=== PATIENT | male | born 1975 | race Caucasian/White ===

== ENCOUNTER 2018-03-16 20:12 | Emergency (ER) | payer SELFPAY ==
[2018-03-16 21:00] VITALS: BP 150/66; PULSE 90; RESP 16; TEMP 98.1; O2SAT 100
--- NOTE | 2018-03-16 21:41 | ED PDOC ---
Lower Extremity Pain/Injury Time Seen by Provider: 03/16/18 21:02 Chief Complaint (Nursing): Lower Extremity Problem/Injury Chief Complaint (Provider): right leg pain History Per: Patient History/Exam Limitations: no limitations Onset/Duration Of Symptoms: Days (x2) Current Symptoms Are (Timing): Still Present Additional Complaint(s): Billy Albert, a 43 year old male with past medical history of diabetes, presents to the emergency department with right calf pain, swelling and bruising onset 2 days. Patient states he was working out (training for boxing) and while jumping side to side, he had an sudden onset of pain to affected area that worsens with walking and bearing weight. He states he has not taking medication and denies fever, chills, prolonged immobility, shortness of breath, chest pain, palpitations, abdominal pain, nausea, vomiting, diarrhea or radiation of pain. Patient reports smoking 4-5 cigarettes per day PMD: none Past Medical History Reviewed: Historical Data, Nursing Documentation, Vital Signs Vital Signs: Last Vital Signs Temp 98.1 F 03/16/18 20:57 Pulse 90 03/16/18 20:57 Resp 16 03/16/18 20:57 BP 150/66 03/16/18 20:57 Pulse Ox 100 03/16/18 20:57 - Medical History PMH: Bronchitis, Diabetes, Fractures, Gastritis - Surgical History Surgical History: No Surg Hx - Family History Family History: States: Unknown Family Hx - Social History Current smoker - smoking cessation education provided: Yes (4-5 cigarettes per day) Alcohol: Other (daily) Drugs: Denies - Home Medications Home Medications: Ambulatory Orders Medication Instructions Recorded Acetaminophen [Acetaminophen 8 650 mg PO Q8 PRN #21 tablet.er 03/16/18 Hour] Naproxen 500 mg PO BID PRN #20 tab 03/16/18 traMADol [Ultram] 50 mg PO Q6 PRN #12 tab 03/16/18 - Allergies Allergies/Adverse Reactions: Allergies Allergy/AdvReac Type Severity Reaction Status Date / Time No Known Allergies Allergy Verified 03/16/18 20:55 Review of Systems ROS Statement: Except As Marked, All Systems Reviewed And Found Negative Constitutional: Negative for: Fever, Chills Cardiovascular: Negative for: Chest Pain, Palpitations Respiratory: Negative for: Shortness of Breath Gastrointestinal: Negative for: Nausea, Vomiting, Abdominal Pain, Diarrhea Musculoskeletal: Positive for: Leg Pain (calf pain, swelling and bruising). Negative for: Other (radiation of pain) Physical Exam - Reviewed Nursing Documentation Reviewed: Yes Vital Signs Reviewed: Yes - Physical Exam Comments: GENERAL APPEARANCE: Patient is awake, alert, oriented x 3, in no acute distress. Ambulatory with a limp in ED. SKIN: Warm, dry; (-) cyanosis. LEG: (+) Diffuse tenderness to right calf, (+) diffuse swelling and ecchymosis right calf, (-) palpable cord (-) warmth (-) erythema. (-) distal neurovascular deficit. (+) pulses. Full ROM ankle and knee. Sensation intact throughout. NEURO AND PSYCH: Mental status as above. Speech clear. (-) facial asymmetry (-) aphasia CHEST AND RESPIRATORY: (-) wheezing; (-) rales, (-) rhonchi, (-) rub; breath sounds equal bilaterally. Respirations even and nonlabored. HEART AND CARDIOVASCULAR: (-) irregularity - Laboratory Results Result Diagrams: 03/16/18 21:55 03/16/18 21:55 - ECG O2 Sat by Pulse Oximetry: 100 (RA) Pulse Ox Interpretation: Normal Medical Decision Making Medical Decision Making: Time: 21:00 Impression: acute calf pain, probable gastrocnemius injury Initial Plan: --CMP --CBC w/ differential --Partial thromboplastin time --Prothrombin time --Toradol 30 mg IVP --Glucose, blood poc --US duplex lower extremity -Accucheck: 121 2220 Patient in U/S. 2235 Labs reviewed. Slight elevation of LFTs. Patient made aware and admits he is a daily drinker but otherwise labs grossly unremarkable. Coag profile WNL. Pending U/S report. 2335 U/S reviewed, radiology report follows EXAM: US Duplex Right Lower Extremity Veins CLINICAL HISTORY: 43 years old, male; Pain; Leg, lower; Right; Additional info: Swelling, R/O dvt vs muscle rupture TECHNIQUE: Real-time duplex ultrasound scan of the right lower extremity veins integrating B-mode twodimensional vascular structure, Doppler spectral analysis, color flow Doppler imaging and compression. COMPARISON: No relevant prior studies available. FINDINGS: Deep veins: Normal color and spectral Doppler flow. Normal compressibility. No deep vein thrombosis. Superficial veins: No thrombosis. Soft tissues: Poorly defined heterogeneity within RIGHT calf. IMPRESSION: 1. No evidence of DVT within RIGHT lower extremity. 2. Poorly defined heterogeneity within RIGHT calf. DDX: Hematoma/muscle tear, phlegmon/early abscess, neoplasm. Clinical correlation is needed. Thank you for allowing us to participate in the care of your patient. Dictated and Authenticated by: Gil Wolff MD 03/16/2018 11:16 PM Eastern Time ([place] & [place]) Patient placed in posterior short leg splint by ED staff. NV intact after placement. Patient advised to keep splint clean, dry, and intact. Patient supplied with crutches and educated on crutch walking. On re-evaluation, patient reports improvement of symptoms. On exam, patient remains AAOx3, in no acute distress. On exam, neck is supple, lungs CTA, cardiac RRR, neuro exam shows no focal findings. VSS, stable for discharge. Diagnostic results d/w the patient in great detail. Dx of acute calf pain, likely gastrocnemius tear/rupture d/w the patient. Based on history, exam and diagnostic results plan will be for discharge and outpatient follow up with PMD/ortho. Strict return precautions given. Advised to follow up with primary care physician / ortho in 1-2 days without fail. Advised to take medication as prescribed. Return to the emergency room at any time for any new or worsening symptoms. Patient states he fully agrees with and understands discharge instructions. States that he agrees with the plan and disposition. Verbalized and repeated discharge instructions and plan. I have given the patient opportunity to ask any additional questions. Scribe Attestation: Documented by Madelyn Rhodes, acting as a scribe for Sade Fonseca PA-C. Provider Scribe Attestation: All medical record entries made by the Scribe were at my direction and personally dictated by me. I have reviewed the chart and agree that the record accurately reflects my personal performance of the history, physical exam, medical decision making, and the department course for this patient. I have also personally directed, reviewed, and agree with the discharge instructions and disposition. Disposition - Clinical Impression Clinical Impression: Right calf pain, Gastrocnemius muscle tear - Patient ED Disposition Is Patient to be Admitted: No Counseled Patient/Family Regarding: Studies Performed, Diagnosis, Need For Followup, Rx Given - Disposition Referrals: Behzad Hernández III, MD [Staff Provider] - [facility] [Outside] Disposition: Routine/Home Disposition Time: 23:54 Condition: STABLE Additional Instructions: The emergency medical care you received today was directed at your acute symptoms. If you were prescribed any medication, please fill it and take as directed. It may take several days for your symptoms to resolve. Return to the Emergency Department if your symptoms worsen, do not improve, or if you have any other problems. Please contact your doctor in 2 days for re-evaluation and follow up / or call one of the physicians/clinics you have been referred to that are listed on the Patient Visit Information form that is included in your discharge packet. Bring any paperwork you were given at discharge with you along with any medications you are taking to your follow up visit. Our treatment cannot replace ongoing medical care by a primary care provider (PCP) outside of the emergency department. Prescriptions: Acetaminophen [Acetaminophen 8 Hour] 650 mg PO Q8 PRN #21 tablet.er PRN Reason: Pain, Moderate (4-7) Naproxen 500 mg PO BID PRN #20 tab PRN Reason: Pain, Moderate (4-7) traMADol [Ultram] 50 mg PO Q6 PRN #12 tab PRN Reason: Pain, Severe (8-10) Instructions: Muscle and Bone Pain (DC), Lower Extremity Muscle Strain (DC) Forms: [employer] (Luxembourgish) Print Language: SLOVAK - POA Present On Arrival: None Results - Lab Results Lab Results: 03/16/18 03/16/18 03/16/18 21:55 21:55 21:55 WBC 4.7 L RBC 3.97 L Hgb 13.6 Hct 40.0 MCV 100.6 H MCH 34.3 H MCHC 34.0 RDW 13.8 Plt Count 72 L MPV 8.8 Neut % (Auto) 57.4 Lymph % (Auto) 23.1 Lane % (Auto) 15.5 H Eos % (Auto) 2.0 Baso % (Auto) 2.0 Neut # (Auto) 2.7 Lymph # (Auto) 1.1 Lane # (Auto) 0.7 Eos # (Auto) 0.1 Baso # (Auto) 0.1 PT 11.7 INR 1.1 APTT 35.1 Sodium 143 Potassium 4.1 Chloride 103 Carbon Dioxide 30 Anion Gap 14 BUN 7 L Creatinine 0.7 L Est GFR ( Amer) > 60 Est GFR (Non-Af Amer) > 60 POC Glucose (mg/dL) Random Glucose 131 H Calcium 8.9 Total Bilirubin 0.4 AST 110 H ALT 71 Alkaline Phosphatase 140 H Total Protein 7.5 Albumin 4.2 Globulin 3.2 Albumin/Globulin Ratio 1.3 03/16/18 21:38 WBC RBC Hgb Hct MCV MCH MCHC RDW Plt Count MPV Neut % (Auto) Lymph % (Auto) Lane % (Auto) Eos % (Auto) Baso % (Auto) Neut # (Auto) Lymph # (Auto) Lane # (Auto) Eos # (Auto) Baso # (Auto) PT INR APTT Sodium Potassium Chloride Carbon Dioxide Anion Gap BUN Creatinine Est GFR ( Amer) Est GFR (Non-Af Amer) POC Glucose (mg/dL) 121 H Random Glucose Calcium Total Bilirubin AST ALT Alkaline Phosphatase Total Protein Albumin Globulin Albumin/Globulin Ratio
[2018-03-16 22:11] LABS: BASO # 0.1 K/uL (0.0-0.2); EOS # 0.1 K/uL (0.0-0.7); HEMOGLOBIN 13.6 g/dL (12.0-18.0); LYMPH # 1.1 K/uL (1.0-4.3); LYMPH % 23.1 % (20.0-40.0); MEAN CELL VOLUME 100.6 fl (80.0-94.0); MEAN CORPUSCULAR HEMOGLOBIN 34.3 pg (27.0-31.0); MEAN PLATELET VOLUME 8.8 fl (7.2-11.7); MONO # 0.7 K/uL (0.0-0.8); MONO % 15.5 % (0.0-10.0); NEUT # 2.7 K/uL (1.8-7.0); NEUT % 57.4 % (50.0-75.0); NRBC % 0.2 % (0.0-0.0); RBC 3.97 Mil/uL (4.40-5.90); RED CELL DISTRIBUTION WIDTH 13.8 % (11.5-14.5); WHITE BLOOD COUNT 4.7 K/uL (4.8-10.8)
[2018-03-16 22:15] LABS: ALB/GLOB RATIO 1.3 (1.0-2.1); ALBUMIN 4.2 g/dL (3.5-5.0); ALT/SGPT 71 U/L (21-72); AST/SGOT 110 U/L (17-59); BLOOD UREA NITROGEN 7 mg/dl (9-20); CALCIUM 8.9 mg/dL (8.4-10.2); GFR NON-AFRICAN AMERICAN > 60
[2018-03-16 22:17] LABS: INR 1.1; PROTHROMBIN TIME 11.7 Seconds (9.8-13.1)
[2018-03-16 22:20] LABS: PARTIAL THROMBOPLASTIN TIME 35.1 Seconds (25.6-37.1)
--- NOTE | 2018-03-17 12:32 | US ---
Date of service: 03/16/2018 PROCEDURE: Right lower extremity venous duplex Doppler. HISTORY: swelling, r/o DVT vs muscle rupture COMPARISON: None available. TECHNIQUE: Common femoral, superficial femoral, popliteal and posterior tibial veins were evaluated. Flow was assessed with color Doppler, compressibility, assessment of phasic flow and augmentation response. FINDINGS: COMMON FEMORAL VEIN: Unremarkable. SUPERFICIAL FEMORAL VEIN: Unremarkable. POPLITEAL VEIN: Unremarkable. POSTERIOR TIBIAL VEIN: Unremarkable. OTHER FINDINGS: Ill-defined mass right calf 8, corresponding findings on physical examination. There are both solid and cystic components. If there is a history of trauma gastrocnemius muscle rupture without adjacent hematoma should be considered. IMPRESSION: No evidence of deep venous thrombosis in the right lower extremity. Soft tissue mass right calf hematoma/ gastrocnemius injury Follow-up to resolution advised. Concordant results (preliminary interpretation) provided by [facility]. Procedure Completed: 22:20 Preliminary ([facility]) Report: Dictated and Authenticated: 23:16 Final Interpretation: 12:30 March 17, 2018.
== END 2018-03-17 00:16 | disposition home or self-care (01) ==
LOC: H.ER 20:12
DX: M79.661 Pain in right lower leg (principal); S86.811A Strain of other muscle(s) and tendon(s) at lower leg level, right leg, initial encounter; X50.3XXA Overexertion from repetitive movements, initial encounter; Y93.71 Activity, boxing; E11.9 Type 2 diabetes mellitus without complications; F17.210 Nicotine dependence, cigarettes, uncomplicated
CPT/HCPCS: 80053; 82948; 85025; 85610; 85730; 93971; 96374; 99285; J1885

== ENCOUNTER 2018-08-12 09:50 | Emergency (ER) | payer SELFPAY ==
--- NOTE | 2018-08-12 11:10 | ED PDOC ---
HPI: General Adult Time Seen by Provider: 08/12/18 11:06 Chief Complaint (Nursing): Lower Extremity Problem/Injury Chief Complaint (Provider): left ankle pain History Per: Patient (43 y/o male here with left ankle injury that occurred when he struck leg against table 1 week ago. Notes persistent pain by ankle. Has h/o diagnosis of Diabetes by [facility] but never follow up.) Past Medical History Reviewed: Historical Data, Nursing Documentation, Vital Signs Vital Signs: Last Vital Signs Temp 97.5 F L 08/12/18 10:16 Pulse 82 08/12/18 10:16 Resp 19 08/12/18 10:16 BP 157/85 H 08/12/18 10:16 Pulse Ox 96 08/12/18 10:16 - Medical History PMH: Bronchitis, Diabetes, Fractures, Gastritis Denies: Anxiety, Arthritis, Asthma, Bipolar Disorder, COPD, Crohn's Disease, Depression, Diverticulitis, Emphysema, Gall Bladder Disease, HIV, Hyperthyroidism, Hypothyroidism, Osteoporosis, Pancreatitis, Paranoia, Pneumon ia, Post Traumatic Stress Disorder, Pulmonary Embolism, Chronic Kidney Disease, Rheumatoid Arthritis, Schizophrenia, Sleep Apnea - Family History Family History: States: Unknown Family Hx - Home Medications Home Medications: Ambulatory Orders Medication Instructions Recorded Acetaminophen [Acetaminophen 8 650 mg PO Q8 PRN #21 tablet.er 03/16/18 Hour] Naproxen 500 mg PO BID PRN #20 tab 03/16/18 traMADol [Ultram] 50 mg PO Q6 PRN #12 tab 03/16/18 Ibuprofen [Motrin] 600 mg PO Q8 PRN #21 tab 08/12/18 - Allergies Allergies/Adverse Reactions: Allergies Allergy/AdvReac Type Severity Reaction Status Date / Time No Known Allergies Allergy Verified 03/16/18 20:55 Review of Systems ROS Statement: Except As Marked, All Systems Reviewed And Found Negative Physical Exam - Reviewed Nursing Documentation Reviewed: Yes Vital Signs Reviewed: Yes - Physical Exam Appears: Positive for: Well, Non-toxic, No Acute Distress Head Exam: Positive for: ATRAUMATIC, NORMAL INSPECTION, NORMOCEPHALIC Skin: Positive for: Normal Color, Warm, DRY Eye Exam: Positive for: EOMI, Normal appearance, PERRL ENT: Positive for: Normal ENT Inspection Neck: Positive for: Normal, Painless ROM Cardiovascular/Chest: Positive for: Regular Rate, Rhythm Respiratory: Positive for: CNT, Normal Breath Sounds Gastrointestinal/Abdominal: Positive for: Normal Exam, Soft Back: Positive for: Normal Inspection Extremity: Positive for: Normal ROM, Other (tenderness posterior left lateral malleolus) Neurologic/Psych: Positive for: Alert, Oriented - ECG O2 Sat by Pulse Oximetry: 96 - Progress ED Course And Treament: accucheck 122 xry of ankle left: no fx Disposition - Clinical Impression Clinical Impression: Contusion of ankle, left - Patient ED Disposition Is Patient to be Admitted: No - Disposition Referrals: [facility] [Outside] [facility] [Outside] Disposition: Routine/Home Disposition Time: 11:14 Condition: FAIR Prescriptions: Ibuprofen [Motrin] 600 mg PO Q8 PRN #21 tab PRN Reason: Pain, Moderate (4-7) Instructions: Contusion (DC) Forms: [facility] ED School/Work Excuse Print Language: LUXEMBOURGISH
--- NOTE | 2018-08-12 11:45 | RAD ---
Date of service: 08/12/2018 PROCEDURE: Left Ankle Radiographs. HISTORY: ankle injury COMPARISON: None available. FINDINGS: BONES: No fracture. Small plantar calcaneal spur. JOINTS: Normal. No osteoarthritis. Ankle mortise maintained. Talar dome intact SOFT TISSUES: Vascular calcification noted. OTHER FINDINGS: None. IMPRESSION: No acute fracture.
[2018-08-12 12:46] VITALS: BP 142/69; RESP 18; TEMP 98; O2SAT 99
[2018-08-12 12:49] VITALS: PULSE 76
== END 2018-08-12 11:30 | disposition home or self-care (01) ==
LOC: H.ER 09:50
DX: S90.02XA Contusion of left ankle, initial encounter (principal); W22.8XXA Striking against or struck by other objects, initial encounter; Y92.89 Other specified places as the place of occurrence of the external cause; E11.9 Type 2 diabetes mellitus without complications